=== PATIENT | female | born 1985 | race Caucasian/White ===

== ENCOUNTER 2016-11-14 11:09 | Outpatient (CLI) | payer MEDICAID | END 2016-11-14 12:35 | disposition home or self-care (01) | LOC: 2LDRP 11:09 → BC 11:09 | DX: O47.1 False labor at or after 37 completed weeks of gestation (principal); Z3A.40 40 weeks gestation of pregnancy ==

== ENCOUNTER 2016-11-18 11:54 | Outpatient (CLI) | payer MEDICAID | END 2016-11-18 17:26 | disposition home or self-care (01) | LOC: BC 11:54 → 2LDRP 15:40 → BC 17:26 | DX: O47.1 False labor at or after 37 completed weeks of gestation (principal); Z3A.41 41 weeks gestation of pregnancy ==

== ENCOUNTER 2016-11-19 11:35 | Outpatient (CLI) | payer MEDICAID | END 2016-11-19 13:02 | disposition home or self-care (01) | LOC: 2LDRP 11:35 → BC 11:35 | DX: O47.1 False labor at or after 37 completed weeks of gestation (principal); Z3A.41 41 weeks gestation of pregnancy ==

== ENCOUNTER 2016-11-20 01:55 | Inpatient (IN) | payer MEDICAID ==
[~2016-11-20] VITALS: Ht 149.9 cm; Wt 110.2 kg
--- NOTE | ~2016-11-20 | FD ---
ADMIT: 11/20/2016 RM/LOC: 227 [facility] MR#: [id number] 2620 [facility] [address] [place] [id number] MAURICE CASTRO [address] [place] [address] Final Diagnosis SEX: F AGE: 31 : 1985 ADMISSION DATE: 11/20/2016 DISCHARGE DATE: 11/22/2016 FINAL DIAGNOSIS: , term . PROCEDURE: Vaginal delivery. Syed De La Torre MD/ chidi JOB #: [id number] CC: Judy Slade MD, Attending Physician Judy Slade MD, Family Physician
[2016-11-22] MEDS ORDERED: NIPPLECREAM TP (14:48)
[2016-11-22] MEDS ORDERED: MOTRIN-DPS800 MG PO (14:48)
[2016-11-22] MEDS ORDERED: TYLENOL #3 DPS1 TAB PO (14:48)
[2016-11-22] MEDS ORDERED: PRENATAL VIT1 TAB PO (14:48)
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
--- NOTE | 2016-12-25 12:27 | OR ---
ADMIT: 11/20/2016 RM/LOC: 227 [facility] MR#: [id number] [address] [facility] [address] [place], [place] [address] MAURICE CASTRO F [address] [place] [address] Operative/Delivery Room Report SEX: F AGE: 31 : 1985 SURGERY DATE: 11/20/2016 SURGEON: Syed De La Torre MD PRINCIPAL DIAGNOSES: Term intrauterine . POSTOPERATIVE DIAGNOSIS: Term intrauterine . PROCEDURE: Spontaneous vaginal delivery. INDICATION: The patient is a 31-year-old white female, 8, para 4-0-3- 4, who presented with complaint of uterine contractions at 40 weeks' estimated gestational age, was noted to be in active labor, progressed through labor in a satisfactory fashion to complete with amniotomy. ANESTHESIA: Subcutaneous Nubain. ESTIMATED BLOOD LOSS: 250 mL. COMPLICATIONS: None. FINDINGS: Viable female infant, 7 pounds 3 ounces with scores of 6 at 1 and 9 at 5 minutes, delivered in right occiput anterior presentation with a nuchal cord x1. DESCRIPTION OF PROCEDURE: When the patient was noted to be complete and pushing, she was prepped and draped in the usual fashion in dorsal lithotomy position. 's head was allowed to deliver over an intact perineum. After restitution of the head, the mouth and nose were cleared. The neck was examined for nuchal cord. Nuchal cord x1 was noted and was delivered through without difficulty. The anterior followed by the posterior shoulders were delivered, followed by expulsion of the remainder of the infant. Mouth and nose were then cleared. Cord was clamped after approximately 30 seconds and cut, and the was placed on the maternal stomach in the care of nursing staff. Placenta was then delivered intact with normal appearance. The uterine cervix was then visualized and noted to be without lacerations or tears. Attention was then turned to the perineum where she was noted to have no significant perineal lacerations. The patient tolerated the procedure well and was taken to the recovery room in stable condition. All sponge, instrument, and needle counts were correct. Syed De La Torre MD/ eleni JOB #: [id number] CC: Judy Slade, Attending Physician Judy Slade, Family Physician
== END 2016-11-22 13:05 | disposition home or self-care (01) | DRG 774 ==
LOC: BC 01:55 → 2LDRP 01:55
PROVIDERS: ADMIT Obstetrics & Gynecology
PROC: 10E0XZZ Delivery of Products of Conception, External Approach (ICD-10-PCS; principal; 2016-11-20)
PROC: 10907ZC Drainage of Amniotic Fluid, Therapeutic from Products of Conception, Via Natural or Artificial Opening (ICD-10-PCS; principal; 2016-11-20)
DX: O48.0 Post-term pregnancy (principal); O98.32 Other infections with a predominantly sexual mode of transmission complicating childbirth; Z68.42 Body mass index [BMI] 45.0-49.9, adult; O99.214 Obesity complicating childbirth; A60.00 Herpesviral infection of urogenital system, unspecified; O99.02 Anemia complicating childbirth; D64.9 Anemia, unspecified; O69.81X0 Labor and delivery complicated by cord around neck, without compression, not applicable or unspecified; E66.01 Morbid (severe) obesity due to excess calories; Z3A.40 40 weeks gestation of pregnancy; Z37.0 Single live birth